=== PATIENT | male | born 1945 | race Caucasian/White ===

== ENCOUNTER 2023-04-09 10:14 | Outpatient (REF) | payer OTHER, SELFPAY | END 2023-04-09 10:15 | disposition home or self-care (01) | LOC: CF 10:14 | PROVIDERS: Visit Provider Psychiatry & Neurology Neurology | DX: Z13.89 Encounter for screening for other disorder (principal) ==

== ENCOUNTER 2023-05-06 11:01 | Outpatient (AMB) | payer OTHER, SELFPAY ==
[2023-05-06 11:04] VITALS: BP 112/58; PULSE 88; O2SAT 94
--- NOTE | 2023-05-06 11:04 | MHC.OFFVIS ---
Intake Vital Signs 05/06/23 11:04 Weight 264 lb BP 112/58 L Blood Pressure Location Lt brachial Position Sitting Pulse 88 Pulse Source Pulse Oximeter Pulse Oximetry (%) 94 Oxygen Delivery Method Room Air Intake Visit Reasons: Shortness of breath Allergies No Known Allergies Allergy (Verified 05/06/23 11:12) Medication List - Last Reconciled 05/06/23 by Antonella Grossman LPN acetaminophen 500 mg PO BID PRN albuterol sulfate 90 mcg/actuation 2 puffs inhalation Q4-6H PRN apixaban 5 mg PO BID cyanocobalamin (vitamin B-12) 1,000 mcg PO DAILY finasteride 5 mg PO DAILY fluticasone propionate 50 mcg/actuation 1 spray intranasal DAILY hydrochlorothiazide 25 mg PO DAILY lisinopril 10 mg PO DAILY loratadine 10 mg PO DAILY mirtazapine 15 mg PO BEDTIME mometasone (Asmanex Twisthaler) 1 inh inhalation DAILY olodaterol 2.5 mcg/actuation 2 inhalations inhalation DAILY omeprazole 20 mg PO DAILY oxybutynin chloride ER 10 mg PO DAILY pregabalin 300 mg PO BID ropinirole 2 mg PO BEDTIME sertraline 200 mg PO DAILY tamsulosin 0.4 mg PO DAILY HPI Shortness of breath HPI Details Gamal is pleasant 78, current 1/2 ppd smoker with approximately 60 pack year history, with underlying COPD, provoked DVT/PE (approx. 4-5 yrs ago) maintained on Eliquis, and SERA noncompliant with CPAP. He was referred for pulmonary evaluation for progressively worsening dyspnea. He reports dyspnea with moderate exertion, wheezing and intermittent cough with clear sputum. He reports suboptimal response to Olodoterol and albuterol MDI. He was prescribed Asmanex but unfortunately did not trial. He denies prior PFT. He reports recent chest CT performed at [facility], referral noted emphysema. Full report not available today, will obtain. He also reports BLE edema and orthopnea. He denies prior echo, has an upcoming consultation with cardiology. He reports possible occupational exposures to multiple chemicals while in the [employer]. He denies prior history of asthma. He denies any pertinent family history. [facility] Social History (Updated 05/06/23 @ 11:13 by Antonella Grossman LPN) Patient Tobacco Use Status: Current everyday Tobacco user Tobacco use type: Cigarette Cigarette Packs Per Day: 0.5 Cigarettes Per Day: 8 Review of Systems Const Denies chills, Denies excessive sweating, Denies fever(s), Denies headache(s) and Denies night sweats Eyes Denies dry eyes, Denies irritation and Denies itchy eyes ENT Reports Normal hearing present, Denies headache(s), Denies nasal congestion, Denies nasal discharge, Denies post nasal drip and Denies sore throat Card Denies chest pain, Denies chest pain at rest, Denies chest pain with activity, Denies claudication, Denies leg edema, Denies dyspnea, Reports dyspnea on exertion, Denies orthopnea and Denies paroxysmal nocturnal dyspnea Resp Denies change in phlegm color, Denies chest congestion, Reports cough, Denies hemoptysis, Denies excessive phlegm production, Denies pain on inspiration, Denies pain with cough, Denies dyspnea, Reports dyspnea on exertion, Denies stridor and Reports wheezing Musc Denies myalgias Neuro Reports Normal hearing present and Denies headache(s) Endo Denies excessive sweating Leonard/Lymph Denies lymphadenopathy Aller/Immun Denies itchy eyes, Denies seasonal rhinorrhea and Reports wheezing Physical Exam Vital Signs: Last Vital Signs Pulse 88 05/06/23 11:04 BP 112/58 L 05/06/23 11:04 Pulse Ox 94 05/06/23 11:04 Oxygen Delivery Method Room Air 05/06/23 11:04 Const General: cooperative, healthy appearing, comfortable, no acute distress, well developed and alert Nutritional Appearance: obese Orientation/consciousness: patient oriented x3 HEENT Head: Yes normal to inspection, Yes normocephalic and Yes atraumatic Ears: hearing grossly normal bilaterally and external ears normal Eyes General: appearance normal, both eyes and all related structures Eyelids: Yes eyelids normal Sclerae: sclerae normal EOM: EOMs intact bilaterally Neck Neck: Yes normal visual inspection and Yes no lymphadenopathy Lymphatic: no lymphadenopathy noted Chest Chest palpation & inspection: normal inspection of the chest Resp Other: diminished lung sounds throughout Effort & Inspection: normal respiratory effort, able to speak in complete sentences, no audible wheezes, no cough, no stridor, not tachypneic, no tripod positioning and no use of accessory muscles Cardio Jugular venous distension: no JVD Rate: regular rate Rhythm: regular rhythm Skin Other: warm, dry General skin exam: no rashes or lesions noted Neuro General: patient oriented x3 Cranial nerves: Yes Normal hearing present Cognition (Neuro): normal cognition Extrem Other: 2-3+ pitting edema of BLE General: Yes normal to inspection and Yes capillary refill normal Psych Appearance: grossly normal and well kempt Speech and movement: Normal speech and movement present and Clear speech present Affect: normal affect Attitude: cooperative Thought process: Normal thought process present Thought content: Normal thought content present Insight: Good insight present (Psych) Judgement: Good judgement present (Psych) Office Procedures 6 Minute Walk Time:: 11:40 SPO2 % at rest: 93 Pulse at rest: 82 SPO2 % during excercise: 87 Pulse during excercise: 96 SPO2 % after excercise: 95 Pulse after excercise: 88 Distance in yards walked: 50 Parmjit Score: 7 Performance Observations:: Patient walked slowly on level ground with the use of a cane and wearing an orthopedic boot on his left foot. After 25 yards O2 saturation decreased to 87% pulse of 96. Patient sat and rested and O2 applied at 1L via nasal cannula. O2 saturation recovered to 95% pulse of 93. Patient was able to continue the walk and maintain O2 saturation of 92% or greater. Patient reports significant dyspnea when walking a long distance or up stairs. Patient would benefit from the use of supplemental O2. 39903 - 6 Minute Walk Assessment & Plan Assessment & Plan (1) COPD (chronic obstructive pulmonary disease): Code(s): J44.9 - Chronic obstructive pulmonary disease, unspecified (2) Dyspnea on exertion: Code(s): R06.09 - Other forms of dyspnea (3) Nocturnal hypoxemia: Code(s): G47.34 - Idiopathic sleep related nonobstructive alveolar hypoventilation Plan Edward's symptoms are likely multifactorial with contribution from pulmonary, cardiac and deconditioning/obesity etiologies. Will send for PFT to assess severity of COPD. Patient reports recent chest CT, will obtain records. Patient has upcoming consultation with cardiology and will likely have an echocardiogram, patient with BLE edema and orthopnea. 6MWT performed today and patient's oxygen decreased to 87% recovering quickly on 1L of supplemental oxygen. At this time, patient declining supplemental oxygen. Discussed negative effects of hypoxia. Patient reports h/o SERA but noncompliant with CPAP therapy, will send for overnight oximetry to assess for nocturnal hypoxia. Will change LAMA to Trelegy and send refill of albuterol, as his is . Importance of oral hygiene reviewed. Patient aware if there are issues obtaining the prescription to call the office. All questions were answered and patient is in agreement of plan. Will follow up to review response to inhaler and results. Orders: Orders AMB 6 minute walk Today R06.09 - Other forms of dyspnea PFT pulmonary function test Today J44.9 - Chronic obstructive pulmonary disease, unspecified, R06.09 - Other forms of dyspnea Overnight Pulse Oximetry Today G47.34 - Idiopathic sleep related nonobstructive alveolar hypoventilation Medications: New vuaoglshfbk-sascbmvar-nlncdkua 200-62.5-25 mcg (Trelegy Ellipta) 1 inh inhalation DAILY 60 ea 3RF Coding Level of Care Code New Pt Level 4 (39075) Diagnoses COPD (chronic obstructive pulmonary disease) J44.9 Dyspnea on exertion R06.09 Nocturnal hypoxemia G47.34 CPT Codes Coding ([id number])
[2023-05-06 12:14] VITALS: PULSE 82; O2SAT 93
== END 2023-05-06 13:07 | disposition home or self-care (01) ==
PROVIDERS: PCP Nurse Practitioner Family; Referring Provider Hospitalist; Visit Provider Nurse Practitioner Family
DX: J44.9 Chronic obstructive pulmonary disease, unspecified (principal); R06.09 Other forms of dyspnea; G47.34 Idiopathic sleep related nonobstructive alveolar hypoventilation
CPT/HCPCS: 94618; 99204

== ENCOUNTER → 2023-05-06 11:01 | Outpatient (BNVA) | payer OTHER, SELFPAY | PROVIDERS: PCP Nurse Practitioner Family; Referring Provider Hospitalist; Visit Provider Nurse Practitioner Family | DX: J44.9 Chronic obstructive pulmonary disease, unspecified (principal); R06.09 Other forms of dyspnea; G47.34 Idiopathic sleep related nonobstructive alveolar hypoventilation | CPT/HCPCS: 94618; 99202 ==

== ENCOUNTER 2023-08-01 12:54 | Outpatient (REF) | payer OTHER, SELFPAY ==
[2023-08-01 08:56] VITALS: PULSE 66; RESP 16; O2SAT 96
--- NOTE | 2023-08-01 13:53 | PFT_ITS ---
Indication: COPD Spirometry [FEV1 to FVC 68% 0.27 L; FVC 3.34 L. There was a significant response to bronchodilators noted. Maximum voluntary ventilation 76% predicted] Lung Volumes [Total lung capacity 69% predicted; expiratory reserve volume 74% predicted] Diffusion Capacity [Diffusing capacity DLCO 56% predicted] Comparisons [None] Interpretation [There has an obstructive ventilatory defect consistent with moderate COPD. There has a significant response to bronchodilators noted. Mild decrease in the maximum voluntary ventilation secondary to likely deconditioning. Lung volumes also demonstrate a restrictive ventilatory defect consistent asoy-zs-pwxtfbnc restrictive lung disease. We did consider underlying parenchymal lung conditions. Patient does have a moderate diffusion impairment. Clinical correlation warranted.] MTDD
== END 2023-08-01 12:55 | disposition home or self-care (01) ==
LOC: HO.RESP 12:54
PROVIDERS: Visit Provider Nurse Practitioner Family
DX: J44.9 Chronic obstructive pulmonary disease, unspecified (principal); R06.09 Other forms of dyspnea
CPT/HCPCS: 94010; 94640; 94727; 94729

== ENCOUNTER → 2023-08-01 13:53 | Outpatient (BNV) | payer OTHER, SELFPAY | PROVIDERS: Visit Provider Hospitalist | DX: J44.9 Chronic obstructive pulmonary disease, unspecified (principal) | CPT/HCPCS: 94060; 94727; 94729 ==

== ENCOUNTER 2023-08-06 13:21 | Outpatient (AMB) | payer OTHER, SELFPAY ==
--- NOTE | 2023-08-06 13:25 | A.OFFVIS_ITS ---
Vital Signs 08/06/23 13:26 Height 5 ft 9 in Weight 251 lb 8 oz BMI 37.1 BP 140/78 H Blood Pressure Location Lt brachial Position Sitting Pulse 65 Pulse Source Pulse Oximeter Pulse Oximetry (%) 96 Oxygen Delivery Method Room Air Intake Visit Reasons: shortness of breath: 3 month f/u Allergies No Known Allergies Allergy (Verified 08/06/23 13:30) HPI HPI shortness of breath: 3 month f/u: Details: Gamal is pleasant 78, current 1/2 ppd smoker with approximately 60 pack year history, with underlying COPD, provoked DVT/PE (approx. 4-5 yrs ago) maintained on Eliquis, and SERA noncompliant with CPAP. At the last visit, he was staretd on Trelegy, however regimen was changed due to [facility]. He is not sure of medications, will call with information later today. He is unsure of effectiveness and continues to report dyspnea with moderate exertion, wheezing and intermittent cough with clear sputum. Today he presents to review overnight oximetry report and PFT. Of note, he reports using CPAP therapy more often and is willing to be compliant. He also reports starting Chantix prescribed by PCP. [facility] Social History Patient Tobacco Use Status: Current everyday Tobacco user Tobacco use type: Cigarette Cigarette Packs Per Day: 0.5 Cigarettes Per Day: 8 Review of Systems Const Denies chills, Denies excessive sweating, Denies fever(s), Denies headache(s) and Denies night sweats Eyes Denies dry eyes, Denies irritation and Denies itchy eyes ENT Reports Normal hearing present, Denies headache(s), Denies nasal congestion, Denies nasal discharge, Denies post nasal drip and Denies sore throat Card Denies chest pain, Denies chest pain at rest, Denies chest pain with activity, Denies claudication, Denies leg edema, Denies orthopnea and Denies paroxysmal nocturnal dyspnea Resp Denies chest congestion, Denies excessive phlegm production, Denies pain on inspiration, Denies pain with cough and Denies stridor Musc Denies myalgias Neuro Reports Normal hearing present and Denies headache(s) Endo Denies excessive sweating Leonard/Lymph Denies lymphadenopathy Aller/Immun Denies itchy eyes and Denies seasonal rhinorrhea Physical Exam Vital Signs: Last Vital Signs Pulse 65 08/06/23 13:26 BP 140/78 H 08/06/23 13:26 Pulse Ox 96 08/06/23 13:26 Oxygen Delivery Method Room Air 08/06/23 13:26 BMI result Body Mass Index 37.1 Const General: cooperative, healthy appearing, comfortable, no acute distress, well developed and alert Nutritional Appearance: obese Orientation/consciousness: patient oriented x3 HEENT Head: Yes normal to inspection, Yes normocephalic and Yes atraumatic Ears: hearing grossly normal bilaterally and external ears normal Eyes General: appearance normal, both eyes and all related structures Eyelids: Yes eyelids normal Sclerae: sclerae normal EOM: EOMs intact bilaterally Neck Neck: Yes normal visual inspection and Yes no lymphadenopathy Lymphatic: no lymphadenopathy noted Chest Chest palpation & inspection: normal inspection of the chest Resp Other: diminished lung sounds throughout Effort & Inspection: normal respiratory effort, able to speak in complete sentences, no audible wheezes, no cough, no stridor, not tachypneic, no tripod positioning and no use of accessory muscles Cardio Jugular venous distension: no JVD Rate: regular rate Rhythm: regular rhythm Skin Other: warm, dry General skin exam: no rashes or lesions noted Neuro General: patient oriented x3 Cranial nerves: Yes Normal hearing present Cognition (Neuro): normal cognition Extrem Other: 2-3+ pitting edema of BLE General: Yes normal to inspection and Yes capillary refill normal Psych Appearance: grossly normal and well kempt Speech and movement: Normal speech and movement present and Clear speech present Affect: normal affect Attitude: cooperative Thought process: Normal thought process present Thought content: Normal thought content present Insight: Good insight present (Psych) Judgement: Good judgement present (Psych) Assessment & Plan Assessment & Plan (1) COPD (chronic obstructive pulmonary disease): Code(s): J44.9 - Chronic obstructive pulmonary disease, unspecified Category: Medical (2) Dyspnea on exertion: Code(s): R06.09 - Other forms of dyspnea Category: Medical (3) Nocturnal hypoxemia: Code(s): G47.34 - Idiopathic sleep related nonobstructive alveolar hypoventilation Category: Medical (4) Obstructive sleep apnea: Code(s): G47.33 - Obstructive sleep apnea (adult) (pediatric) Category: Medical Plan Edward continues to report suboptimal effect with current medication regimen. Unfortunately, Yanci was switched to other medications due to insurance coverage and he can not recall what medications/dosages he is on. Advised patient to call when he gets home to let our office know what he is taking. Reviewed overnight oximetry and expressed need for nocturnal supplemental oxygen if he is not using his CPAP machine. He expressed willingness to be more compliant. Will send for overnight oximetry while using CPAP to see if his nocturnal hypoxemia is corrected. If hypoxia persists, discussed in lab titration study. Reviewed PFT which revealed an obstructive ventilatory defect consistent with moderate COPD. There has a significant response to bronchodilators noted. Mild decrease in the maximum voluntary ventilation secondary to likely deconditioning. Lung volumes also demonstrate a restrictive ventilatory defect consistent vcyd-rf-xbtbvbal restrictive lung disease, likely due to obesity. There is also moderate diffusion impairment likely secondary to emphysema. All questions were answered and patient is in agreement of plan. Will follow up to review results or sooner if needed. Orders: Orders Overnight Pulse Oximetry Today G47.34 - Idiopathic sleep related nonobstructive alveolar hypoventilation Coding Level of Care Code Est Pt Level 4 (58469) Diagnoses COPD (chronic obstructive pulmonary disease) J44.9 Dyspnea on exertion R06.09 Nocturnal hypoxemia G47.34 Obstructive sleep apnea G47.33
[2023-08-06 13:26] VITALS: BP 140/78; PULSE 65; O2SAT 96; BMI 37.1
== END 2023-08-06 14:24 | disposition home or self-care (01) ==
PROVIDERS: PCP Nurse Practitioner Family; Visit Provider Nurse Practitioner Family
DX: J44.9 Chronic obstructive pulmonary disease, unspecified (principal); R06.09 Other forms of dyspnea; G47.34 Idiopathic sleep related nonobstructive alveolar hypoventilation; G47.33 Obstructive sleep apnea (adult) (pediatric)
CPT/HCPCS: 99214

== ENCOUNTER → 2023-08-06 13:21 | Outpatient (BNVA) | payer OTHER, SELFPAY | PROVIDERS: PCP Nurse Practitioner Family; Visit Provider Nurse Practitioner Family | DX: J44.9 Chronic obstructive pulmonary disease, unspecified (principal); G47.33 Obstructive sleep apnea (adult) (pediatric); R06.09 Other forms of dyspnea; G47.34 Idiopathic sleep related nonobstructive alveolar hypoventilation; F17.210 Nicotine dependence, cigarettes, uncomplicated; Z91.199 Patient's noncompliance with other medical treatment and regimen due to unspecified reason; Z86.718 Personal history of other venous thrombosis and embolism; Z79.01 Long term (current) use of anticoagulants | CPT/HCPCS: 99212 ==

== ENCOUNTER 2024-01-09 11:29 | Outpatient (AMB) | payer OTHER, SELFPAY ==
[2024-01-09 11:31] VITALS: BP 118/72; PULSE 62; O2SAT 94; BMI 37.0
--- NOTE | 2024-01-09 11:31 | A.OFFVIS_ITS ---
Vital Signs 01/09/24 11:31 Height 5 ft 9 in Weight 250 lb 4 oz BMI 37.0 BP 118/72 Blood Pressure Location Rt brachial Position Sitting Pulse 62 Pulse Source Pulse Oximeter Pulse Oximetry (%) 94 Oxygen Delivery Method Room Air Intake Visit Reasons: Shortness of breath Allergies No Known Allergies Allergy (Verified 01/09/24 11:35) HPI HPI Shortness of breath: Details: Gamal is pleasant 78, current 1/2 ppd smoker with approximately 60 pack year history, with underlying COPD, provoked DVT/PE (approx. 4-5 yrs ago) maintained on Eliquis, and SERA noncompliant with CPAP. He has been suboptimally controlled on ICS/LABA. Previously attempted to send in Trelegy however was not covered through the [facility]. He continues to report dyspnea with moderate exertion, wheezing and intermittent cough with clear sputum. He reports issues of compliance with CPAP therapy however has been more compliant recently. Prior overnight oximetry revealed nocturnal hypoxemia and was sent for an overnight oximetry with CPAP, however this was not performed due to lack of compliance. Previously discussed supplemental oxygen for night however he refused and continues to. He has an upcoming LDCT through the [facility] scheduled in February. [facility] Social History Patient Tobacco Use Status: Current everyday Tobacco user Tobacco use type: Cigarette Cigarette Packs Per Day: 0.5 Cigarettes Per Day: 8 Review of Systems Const Denies chills, Denies excessive sweating, Denies fever(s), Denies headache(s) and Denies night sweats Eyes Denies dry eyes, Denies irritation and Denies itchy eyes ENT Reports Normal hearing present, Denies headache(s), Denies nasal congestion, Denies nasal discharge, Denies post nasal drip and Denies sore throat Card Denies chest pain, Denies chest pain at rest, Denies chest pain with activity, Denies claudication, Denies leg edema, Reports dyspnea on exertion, Denies orthopnea and Denies paroxysmal nocturnal dyspnea Resp Denies chest congestion, Reports cough, Denies excessive phlegm production, Denies pain on inspiration, Denies pain with cough, Reports dyspnea on exertion, Denies stridor and Reports wheezing Musc Denies myalgias Neuro Reports Normal hearing present and Denies headache(s) Endo Denies excessive sweating Leonard/Lymph Denies lymphadenopathy Aller/Immun Denies itchy eyes, Denies seasonal rhinorrhea and Reports wheezing Physical Exam Vital Signs: Last Vital Signs Pulse 62 01/09/24 11:31 BP 118/72 01/09/24 11:31 Pulse Ox 94 01/09/24 11:31 Oxygen Delivery Method Room Air 01/09/24 11:31 BMI result Body Mass Index 37.0 Const General: cooperative, healthy appearing, comfortable, no acute distress, well developed and alert Nutritional Appearance: obese Orientation/consciousness: patient oriented x3 Limitations: no limitations HEENT Head: Yes normal to inspection, Yes normocephalic and Yes atraumatic Ears: hearing grossly normal bilaterally and external ears normal Eyes General: appearance normal, both eyes and all related structures Eyelids: Yes eyelids normal Sclerae: sclerae normal EOM: EOMs intact bilaterally Neck Neck: Yes normal visual inspection and Yes no lymphadenopathy Lymphatic: no lymphadenopathy noted Chest Chest palpation & inspection: normal inspection of the chest Resp Other: diminished lung sounds throughout with audible wheezes, improved with DuoNeb Effort & Inspection: normal respiratory effort, able to speak in complete sent ences, audible wheezes, no cough, no stridor, not tachypneic, no tripod positioning and no use of accessory muscles Auscultation: wheezes and diminished lung sounds Cardio Jugular venous distension: no JVD Rate: regular rate Rhythm: regular rhythm Skin Other: warm, dry General skin exam: no rashes or lesions noted Neuro General: patient oriented x3 Cranial nerves: Yes Normal hearing present Cognition (Neuro): normal cognition Gait exam (Neuro): Normal gait present Extrem Other: 2-3+ pitting edema of BLE General: Yes normal to inspection, Yes capillary refill normal, Yes no clubbing, cyanosis or edema and Yes no pedal edema Psych Appearance: grossly normal and well kempt Speech and movement: Normal speech and movement present and Clear speech present Affect: normal affect Attitude: cooperative Thought process: Normal thought process present Thought content: Normal thought content present Insight: Good insight present (Psych) Judgement: Good judgement present (Psych) Office Procedures Nebulizer Treatment Nebulizer Treatment [id number]/MDI RX initial, or Nebulizer Subsequent Treatment Office Meds ipratropium 0.5 mg-albuterol 3 mg (2.5 mg base)/3 mL nebulization soln Performing Provider: Sade Brooke NP Performing Location: [facility] Administered by: Shanice Hayes LPN on 01/09/24 12:03 Dose Route Admin Location Dispensed Lot Number Expiration Date [employer] Professor 3 mL inhalation 3 mL [id number] 07/05/25 74433-447-48 [employer] Assessment & Plan Assessment & Plan (1) COPD (chronic obstructive pulmonary disease): Code(s): J44.9 - Chronic obstructive pulmonary disease, unspecified Category: Medical (2) Dyspnea on exertion: Code(s): R06.09 - Other forms of dyspnea Category: Medical (3) Nocturnal hypoxemia: Code(s): G47.34 - Idiopathic sleep related nonobstructive alveolar hypoventilation Category: Medical (4) Obstructive sleep apnea: Code(s): G47.33 - Obstructive sleep apnea (adult) (pediatric) Category: Medical Plan Edward continues to report suboptimal effect with current medication regimen, will send Trelegy to [facility] per request. Will also send DuoNeb and nebulizer for home use. Again reviewed prior overnight oximetry and expressed need for nocturnal supplemental oxygen if he is not using his CPAP machine. He again expressed willingness to be more compliant. Will send for overnight oximetry while using CPAP once more complianct, to see if his nocturnal hypoxemia is corrected. If hypoxia persists, discussed in lab titration study. Once chest CT performed in February will request results. All questions were answered and patient is in agreement of plan. Will follow up in 4-6 weeks or sooner if needed. Orders: Orders AMB Nebulizer Treatment Today J44.9 - Chronic obstructive pulmonary disease, unspecified, R06.09 - Other forms of dyspnea Medications: New ipratropium-albuterol 0.5 mg-3 mg(2.5 mg base)/3 mL 3 mL inhalation Q6H PRN 180 mL 3RF wheezing ipratropium-albuterol 0.5 mg-3 mg(2.5 mg base)/3 mL 3 mL inhalation Q6H PRN 180 mL 3RF wheezing Refilled mspkhbiumgl-mqounhgfo-mguvbimd 200-62.5-25 mcg (Trelegy Ellipta) 1 inh inhalation DAILY 60 ea 3RF Coding Level of Care Code Est Pt Level 4 (81330) Diagnoses COPD (chronic obstructive pulmonary disease) J44.9 Dyspnea on exertion R06.09 Nocturnal hypoxemia G47.34 Obstructive sleep apnea G47.33 CPT Codes Nebulizer Treatment - Nebulizer Treatment, initial or subsequent: 25428- Nebulizer/MDI RX initial, or Nebulizer Subsequent Treatment ([id number])
== END 2024-01-09 12:19 | disposition home or self-care (01) ==
PROVIDERS: PCP Nurse Practitioner Family; Referring Provider Nurse Practitioner Family; Visit Provider Nurse Practitioner Family
DX: J44.9 Chronic obstructive pulmonary disease, unspecified (principal); R06.09 Other forms of dyspnea; G47.34 Idiopathic sleep related nonobstructive alveolar hypoventilation; G47.33 Obstructive sleep apnea (adult) (pediatric)
CPT/HCPCS: 99214

== ENCOUNTER → 2024-01-09 11:29 | Outpatient (BNVA) | payer OTHER, SELFPAY | PROVIDERS: PCP Nurse Practitioner Family; Visit Provider Nurse Practitioner Family | DX: J44.9 Chronic obstructive pulmonary disease, unspecified (principal); G47.33 Obstructive sleep apnea (adult) (pediatric); R06.09 Other forms of dyspnea; G47.34 Idiopathic sleep related nonobstructive alveolar hypoventilation; F17.210 Nicotine dependence, cigarettes, uncomplicated; Z86.718 Personal history of other venous thrombosis and embolism; Z79.01 Long term (current) use of anticoagulants; Z99.89 Dependence on other enabling machines and devices; Z91.199 Patient's noncompliance with other medical treatment and regimen due to unspecified reason | CPT/HCPCS: 94640; 99212 ==

== ENCOUNTER 2024-06-18 13:54 | Outpatient (REF) | payer OTHER, SELFPAY | END 2024-06-18 13:55 | disposition home or self-care (01) | LOC: CF 13:54 | DX: Z13.89 Encounter for screening for other disorder (principal) ==

== ENCOUNTER 2024-07-16 11:09 | Outpatient (AMB) | payer OTHER, SELFPAY ==
[2024-07-16 11:12] VITALS: BP 114/68; PULSE 65; O2SAT 93; BMI 37.5
--- NOTE | 2024-07-16 11:12 | A.OFFVIS_ITS ---
Vital Signs 07/16/24 11:12 Height 5 ft 9 in Weight 254 lb BMI 37.5 BP 114/68 Blood Pressure Location Rt brachial Position Sitting Pulse 65 Pulse Source Pulse Oximeter Pulse Oximetry (%) 93 Oxygen Delivery Method Room Air Intake Visit Reasons: Shortness of breath Organic Preparation Analyst Required: No Patent Litigation Associate: Patent Litigation Associate offered & declined Accompanied by: Spouse Allergies No Known Allergies Allergy (Verified 07/16/24 11:16) Medication List - Last Reconciled 07/16/24 by Shanice Hayes LPN acetaminophen 500 mg PO BID PRN albuterol sulfate 90 mcg/actuation 2 puffs inhalation Q4-6H PRN albuterol sulfate 90 mcg/actuation 2 puffs inhalation Q4-6H PRN apixaban 5 mg PO BID cyanocobalamin (vitamin B-12) 1,000 mcg PO DAILY finasteride 5 mg PO DAILY fluticasone propionate 50 mcg/actuation 1 spray intranasal DAILY niseoouyyhm-ppyvwajlx-uzkcoxmt 200-62.5-25 mcg (Trelegy Ellipta) 1 inh inhalation DAILY gabapentin enacarbil ER (Horizant ER) 600 mg PO QPM hydrochlorothiazide 25 mg PO DAILY ipratropium-albuterol 0.5 mg-3 mg(2.5 mg base)/3 mL 3 mL inhalation Q6H PRN lisinopril 10 mg PO DAILY loratadine 10 mg PO DAILY mirtazapine 15 mg PO BEDTIME omeprazole 20 mg PO DAILY oxybutynin chloride ER 10 mg PO DAILY pregabalin 300 mg PO BID ropinirole 2 mg PO BEDTIME sertraline 200 mg PO DAILY tamsulosin 0.4 mg PO DAILY zolpidem (Ambien) 5 mg PO BEDTIME HPI HPI Shortness of breath: Details: Gamal is pleasant 79, current 1/2 ppd smoker with approximately 60 pack year h istory, with underlying COPD, provoked DVT/PE (approx. 4-5 yrs ago) maintained on Eliquis, and SERA noncompliant with CPAP. He has been moderately controlled on Trelegy. He continues to report dyspnea with moderate exertion, wheezing and intermittent cough with clear sputum. He also notes increased orthopnea and bilateral lower extremity edema. He is under the care of [facility] and has an upcoming appointment scheduled in August. He reportedly had an echo performed recently however report not available today, will attempt to obtain. He continues to report noncompliance with CPAP therapy and is not interested in overnight supplemental oxygen as prior overnight oximetry revealed nocturnal hypoxemia. He denies any visits to urgent care or hospitalizations related to respiratory distress since last visit. Of note patient enrolled in lung screening program and reviewed CT from 02/25/2024 which reveals stable 4.7 mm right middle lobe nodule. He has upcoming low-dose CT scheduled for February 2025. [facility] Social History (Updated 07/16/24 @ 11:21 by Shanice Hayes LPN) Patient Tobacco Use Status: Current everyday Tobacco user Tobacco use type: Cigarette Cigarette Packs Per Day: 0.5 Cigarettes Per Day: 10 Review of Systems Const Denies chills, Denies excessive sweating, Denies fever(s), Denies headache(s) and Denies night sweats Eyes Denies dry eyes, Denies irritation and Denies itchy eyes ENT Reports Normal hearing present, Denies headache(s), Denies nasal congestion, Denies nasal discharge, Denies post nasal drip and Denies sore throat Card Denies chest pain, Denies chest pain at rest, Denies chest pain with activity, Denies claudication, Reports leg edema, Reports dyspnea on exertion, Reports orthopnea and Denies paroxysmal nocturnal dyspnea Resp Denies chest congestion, Reports cough, Denies excessive phlegm production, Denies pain on inspiration, Denies pain with cough, Reports dyspnea on exertion, Denies stridor and Reports wheezing Musc Denies myalgias Neuro Reports Normal hearing present and Denies headache(s) Endo Denies excessive sweating Leonard/Lymph Denies lymphadenopathy Aller/Immun Denies itchy eyes, Denies seasonal rhinorrhea and Reports wheezing Physical Exam Vital Signs: Last Vital Signs Pulse 65 07/16/24 11:12 BP 114/68 07/16/24 11:12 Pulse Ox 93 07/16/24 11:12 Oxygen Delivery Method Room Air 07/16/24 11:12 BMI result Body Mass Index 37.5 Const General: cooperative, healthy appearing, comfortable, no acute distress, well developed and alert Nutritional Appearance: obese Orientation/consciousness: patient oriented x3 Limitations: no limitations HEENT Head: Yes normal to inspection, Yes normocephalic and Yes atraumatic Ears: hearing grossly normal bilaterally and external ears normal Eyes General: appearance normal, both eyes and all related structures Eyelids: Yes eyelids normal Sclerae: sclerae normal EOM: EOMs intact bilaterally Neck Neck: Yes normal visual inspection and Yes no lymphadenopathy Lymphatic: no lymphadenopathy noted Chest Chest palpation & inspection: normal inspection of the chest Resp Effort & Inspection: normal respiratory effort, able to speak in complete sentences, no cough, no stridor, not tachypneic, no tripod positioning and no use of accessory muscles Auscultation: no crackles, no rhonchi, no wheezes and diminished lung sounds Cardio Jugular venous distension: no JVD Rate: regular rate Rhythm: regular rhythm Skin Other: warm, dry General skin exam: no rashes or lesions noted Neuro General: patient oriented x3 Cranial nerves: Yes Normal hearing present Cognition (Neuro): normal cognition Gait exam (Neuro): Normal gait present Extrem Other: 2-3+ pitting edema of BLE General: Yes normal to inspection, Yes capillary refill normal, Yes no clubbing, cyanosis or edema and Yes no pedal edema Psych Appearance: grossly normal and well kempt Speech and movement: Normal speech and movement present and Clear speech present Affect: normal affect Attitude: cooperative Thought process: Normal thought process present Thought content: Normal thought content present Insight: Good insight present (Psych) Judgement: Good judgement present (Psych) Assessment & Plan Assessment & Plan (1) COPD (chronic obstructive pulmonary disease): Code(s): J44.9 - Chronic obstructive pulmonary disease, unspecified Category: Medical (2) Dyspnea on exertion: Code(s): R06.09 - Other forms of dyspnea Category: Medical (3) Nocturnal hypoxemia: Code(s): G47.34 - Idiopathic sleep related nonobstructive alveolar hypoventilation Category: Medical (4) Obstructive sleep apnea: Code(s): G47.33 - Obstructive sleep apnea (adult) (pediatric) Category: Medical Plan Edward continues to report suboptimal effect with current medication regimen, encouraged patient to continue Trelegy in addition to DuoNeb b.i.d.. Will also send flutter valve to improve mucus clearance. We discussed nocturnal supplemental oxygen however patient continues to defer. Discussed adverse effects of hypoxia. Will attempt to obtain prior echo and encouraged patient to weigh himself daily, reporting any increase of 2-3lbs in one day or 5 lbs in one week to cardiology. Reviewed chest CT which revealed stable RML nodule, [facility] All questions were answered and patient is in agreement of plan. Will follow up in 3 months or sooner if needed. Coding Level of Care Code Est Pt Level 4 (88581) Diagnoses COPD (chronic obstructive pulmonary disease) J44.9 Dyspnea on exertion R06.09 Nocturnal hypoxemia G47.34 Obstructive sleep apnea G47.33
== END 2024-07-16 11:53 | disposition home or self-care (01) ==
LOC: HO.HPSW 11:10
PROVIDERS: PCP Nurse Practitioner Family; Referring Provider Nurse Practitioner Family; Visit Provider Nurse Practitioner Family
DX: J44.9 Chronic obstructive pulmonary disease, unspecified (principal); R06.09 Other forms of dyspnea; G47.34 Idiopathic sleep related nonobstructive alveolar hypoventilation; G47.33 Obstructive sleep apnea (adult) (pediatric)
CPT/HCPCS: 99214

== ENCOUNTER → 2024-07-16 11:09 | Outpatient (BNVA) | payer OTHER, SELFPAY | PROVIDERS: PCP Nurse Practitioner Family; Visit Provider Nurse Practitioner Family | DX: J44.9 Chronic obstructive pulmonary disease, unspecified (principal); R06.09 Other forms of dyspnea; G47.34 Idiopathic sleep related nonobstructive alveolar hypoventilation; G47.33 Obstructive sleep apnea (adult) (pediatric) | CPT/HCPCS: 99212 ==

== ENCOUNTER 2024-10-22 10:59 | Outpatient (AMB) | payer OTHER, SELFPAY ==
[2024-10-22 11:03] VITALS: BP 120/64; PULSE 61; O2SAT 94; BMI 34.6
--- NOTE | 2024-10-22 11:03 | MHC.OFFVIS ---
Vital Signs 10/22/24 11:03 Height 5 ft 9 in Weight 234 lb BMI 34.6 BP 120/64 Blood Pressure Location Rt brachial Position Sitting Pulse 61 Pulse Source Pulse Oximeter Pulse Oximetry (%) 94 Oxygen Delivery Method Room Air Intake Visit Reasons: Shortness of breath Blood Tester Required: No Straw Hat Brim Cutter Operator: Straw Hat Brim Cutter Operator offered & declined Accompanied by: Spouse Allergies No Known Allergies Allergy (Verified 10/22/24 11:07) Medication List - Last Reconciled 10/22/24 by Shanice Hayes LPN acetaminophen 500 mg PO BID PRN albuterol sulfate 90 mcg/actuation 2 puffs inhalation Q4-6H PRN albuterol sulfate 90 mcg/actuation 2 puffs inhalation Q4-6H PRN apixaban 5 mg PO BID cyanocobalamin (vitamin B-12) 1,000 mcg PO DAILY finasteride 5 mg PO DAILY fluticasone propionate 50 mcg/actuation 1 spray intranasal DAILY hhjauhbzhar-qqjxfdpsc-odaolnqo 200-62.5-25 mcg (Trelegy Ellipta) 1 inh inhalation DAILY gabapentin enacarbil ER (Horizant ER) 600 mg PO QPM ipratropium-albuterol 0.5 mg-3 mg(2.5 mg base)/3 mL 3 mL inhalation Q6H PRN lisinopril 10 mg PO DAILY loratadine 10 mg PO DAILY oxybutynin chloride ER 10 mg PO DAILY pregabalin 300 mg PO BID ropinirole 2 mg PO BEDTIME sertraline 200 mg PO DAILY tamsulosin 0.4 mg PO DAILY HPI HPI Shortness of breath: Details: Gamal is pleasant 79, current 1/2 ppd smoker with approximately 60 pack year history, with underlying COPD, provoked DVT/PE (approx. 4-5 yrs ago) maintained on Eliquis, and SERA noncompliant with CPAP. He has been moderately controlled on Trelegy, using albuterol MDI frequently. He does have DuoNeb and flutter valve however uses infrequently. He continues to report dyspnea with moderate exertion, wheezing and intermittent cough with clear sputum. He is under the care of [place], last seen in August with no further workup scheduled. His last echo was from 2021 which revealed mild LVH otherwise unremarkable. Patient enrolled in lung screening program and reviewed CT from 02/25/2024 which reveals stable 4.7 mm right middle lobe nodule and has repeat CT scheduled at the [facility] February 2025. Prior CT revealed enlarged pulmonary arteries suggestive of pulmonary hypertension. He continues to report noncompliance with CPAP therapy and is not interested in overnight supplemental oxygen as prior overnight oximetry revealed nocturnal hypoxemia. He denies any visits to urgent care or hospitalizations related to respiratory distress since last visit. [facility] Social History (Updated 07/16/24 @ 11:21 by Shanice Hayes LPN) Patient Tobacco Use Status: Current everyday Tobacco user Tobacco use type: Cigarette Cigarette Packs Per Day: 0.5 Cigarettes Per Day: 10 Review of Systems Const Denies chills, Denies excessive sweating, Denies fever(s), Denies headache(s) and Denies night sweats Eyes Denies dry eyes, Denies irritation and Denies itchy eyes ENT Reports Normal hearing present, Denies headache(s), Denies nasal congestion, Denies nasal discharge, Denies post nasal drip and Denies sore throat Card Denies chest pain, Denies chest pain at rest, Denies chest pain with activity, Denies claudication, Reports leg edema, Reports dyspnea on exertion, Reports orthopnea and Denies paroxysmal nocturnal dyspnea Resp Denies chest congestion, Reports cough, Denies excessive phlegm production, Denies pain on inspiration, Denies pain with cough, Reports dyspnea on exertion, Denies stridor and Reports wheezing Musc Denies myalgias Neuro Reports Normal hearing present and Denies headache(s) Endo Denies excessive sweating Leonard/Lymph Denies lymphadenopathy Aller/Immun Denies itchy eyes, Denies seasonal rhinorrhea and Reports wheezing Physical Exam Vital Signs: Last Vital Signs Pulse 61 10/22/24 11:03 BP 120/64 10/22/24 11:03 Pulse Ox 94 10/22/24 11:03 Oxygen Delivery Method Room Air 10/22/24 11:03 BMI result Body Mass Index 34.6 Const General: cooperative, healthy appearing, comfortable, no acute distress, well developed and alert Nutritional Appearance: obese Orientation/consciousness: patient oriented x3 Limitations: no limitations HEENT Head: Yes normal to inspection, Yes normocephalic and Yes atraumatic Ears: hearing grossly normal bilaterally and external ears normal Eyes General: appearance normal, both eyes and all related structures Eyelids: Yes eyelids normal Sclerae: sclerae normal EOM: EOMs intact bilaterally Neck Neck: Yes normal visual inspection and Yes no lymphadenopathy Lymphatic: no lymphadenopathy noted Chest Chest palpation & inspection: normal inspection of the chest Resp Effort & Inspection: normal respiratory effort, able to speak in complete sentences, no cough, no stridor, not tachypneic, no tripod positioning and no use of accessory muscles Auscultation: no crackles, no rhonchi, no wheezes and diminished lung sounds Cardio Jugular venous distension: no JVD Rate: regular rate Rhythm: regular rhythm Skin Other: warm, dry General skin exam: no rashes or lesions noted Neuro General: patient oriented x3 Cranial nerves: Yes Normal hearing present Cognition (Neuro): normal cognition Gait exam (Neuro): Normal gait present Extrem Other: 2-3+ pitting edema of BLE General: Yes normal to inspection, Yes capillary refill normal, Yes no clubbing, cyanosis or edema and Yes no pedal edema Psych Appearance: grossly normal and well kempt Speech and movement: Normal speech and movement present and Clear speech present Affect: normal affect Attitude: cooperative Thought process: Normal thought process present Thought content: Normal thought content present Insight: Good insight present (Psych) Judgement: Good judgement present (Psych) Assessment & Plan Assessment & Plan (1) COPD (chronic obstructive pulmonary disease): Code(s): J44.9 - Chronic obstructive pulmonary disease, unspecified Category: Medical (2) Dyspnea on exertion: Code(s): R06.09 - Other forms of dyspnea Category: Medical (3) Nocturnal hypoxemia: Code(s): G47.34 - Idiopathic sleep related nonobstructive alveolar hypoventilation Category: Medical (4) Obstructive sleep apnea: Code(s): G47.33 - Obstructive sleep apnea (adult) (pediatric) Category: Medical Plan Edward continues to report suboptimal effect with current medication regimen, encouraged patient to continue Trelegy in addition to DuoNeb b.i.d. as well as flutter valve to improve mucus clearance. We discussed nocturnal supplemental oxygen however patient continues to defer. Discussed adverse effects of hypoxia. February [address] revealed stable RML nodule, will have repeat LDCT scheduled through the [facility] 02/2025. Smoking cessation is strongly encouraged, with a gradual reduction in cigarette consumption as a potential strategy. An echocardiogram is recommended to assess pulmonary pressures and evaluate for pulmonary hypertension, especially given the history of untreated sleep apnea. Coordination with cardiology is necessary to ensure timely scheduling of this test. Printed order for patient and [facility]. All questions were answered and patient is in agreement of plan. Will follow up in 3 months or sooner if needed. Orders: Orders CA echo transthoracic complete Today R06.09 - Other forms of dyspnea Coding Level of Care Code Est Pt Level 4 (93725) Complex EM visit Add On G2211 Diagnoses COPD (chronic obstructive pulmonary disease) J44.9 Dyspnea on exertion R06.09 Nocturnal hypoxemia G47.34 Obstructive sleep apnea G47.33
--- OUTSIDE RECORDS SUMMARY | 2024-10-22 11:35 | XMS_ITS | Clinical Summary ---
Author Organization [facility] Address [address] [place] [address] [address] [place] [phone] Phone Care Team Providers Care Training Program Developer Name Role Phone Ozzy Johnston MD Primary Care Provider Allergies Active Allergy Reactions Criticality Noted Date Comments Pollen Extracts 08/02/2024 Medications No known medications Encounters Date Type Department Care Team Description 08/02/2024 1:40 PM EDT Office Visit [facility] [address] [place] [id number] Michelle Rader PA-C Traumatic closed nondisplaced fracture of styloid process of radius, right, with routine healing, subsequent encounter (Primary Dx); Occult closed fracture of scaphoid of right wrist, initial encounter 08/02/2024 1:23 PM EDT - 08/02/2024 11:59 PM EDT Hospital Encounter [address] [id number] Michelle Rader PA-C Discharge Disposition: Home or Self Care from Last 3 Months Social History Tobacco Use Types Packs/Day Years Used Date Smoking Tobacco: Never Assessed Education Answer Date Recorded Are you interested in more education? Not on michael e 10/25/2022 Are you concerned about learning? Not on file 10/25/2022 No 10/25/2022 No 10/25/2022 Digital Access Answer Date Recorded No 10/25/2022 No 10/25/2022 Reliable internet access at home? Not on file 10/25/2022 Device with a working camera? Not on file Sex and Gender Information Value Date Recorded Sex Assigned at Not on file Legal Sex Male 12:25 PM EDT Gender Identity Not on file Sexual Orientation Not on file Plan of Treatment Health Maintenance Due Date Last Done Comments LIPID PANEL 1947 DEPRESSION SCREENING 1959 SMOKING Hx and SMOKELESS TOBACCO SCREENING 1960 HEPATITIS C SCREENING 1965 COVID-19 VACCINE ( season) 2024 12/31/2023, 01/23/2022, 09/19/2021, Additional history exists Adult Td,Tdap Booster 10/20/2033 10/21/2023 , 01/17/2017, 02/10/2009, Additional history exists PNEUMOCOCCAL VACCINES (50+ years) Completed 03/27/2017, 08/05/2014 ZOSTER VACCINES Completed 12/05/2017, 07/08, 04/26/2010, Additional history exists RSV VACCINE Completed 02/17/2023 HEPATITIS A VACCINES Aged Out 03/24/2023, 07/31/19 23 No longer eligible based on patient's age to complete this topic HIB VACCINES Aged Out No longer eligi ble based on patient's age to complete this topic MENINGOCOCCAL VACCINES (ACWY) Aged Out No longer eligible based on patient's age to complete this topic MENINGOCOCCAL VACCINES (B) Aged Out N o longer eligible based on patient's age to complete this topic Medical Devices Not on file Procedures Procedure Name Priority Date/Time Associated Diagnosis Comments XR WRIST 3 OR MORE VIEWS (RIGHT) Routine 08/02/2024 1:30 PM EDT Occult closed fracture of scaphoid of right wrist, initial encounter from Last 3 Months Results * XR WRIST 3 OR MORE VIEWS (RIGHT) (08/02/2024 1:30 PM EDT) Narrative SYSTEMGENERATED, DOCUMENTATION - 08/02/2024 1:30 PM EDT This image report has been auto-finalized and has not been read by a Radiologist. Interpretation has been included in the provider encounter note for this date of service. Michelle Rader PA-C IMG XR UPPER EXTREMI TY Final Result from Last 3 Months Insurance [facility] Address: [facility] [id number] [place] [address] MEDICARE PART A & B Member Subscriber Plan / Payer (Ef fective 2007-Present) Name:Ryan Schneider Member ID:[id number] Relation to Subscriber:Self Name:Ryan Schneider Subscriber ID:[id number] Payer ID:[id number] Group ID:Not on file Type:Medicare Address: [facility] [employer] [facility] [address] [facility] [place] [phone] [facility] MEDICARE SUPPLEMENT [facility] MEDICARE PART A & B [facility] MEDICARE SUPPLEMENT [facility] MEDICARE PART A & B FOR LIFE MEDICARE SUPPLEMENT [facility] MEDICARE PART A & B FOR LIFE MEDICARE SUPPLEMENT [facility] MEDICARE PART A & B [facility] MEDICARE SUPPLEMENT [facility] MEDICARE PART A & B [facility] MEDICARE SUPPLEMENT Care Teams Training Program Developer Relationship Specialty Start Date End Date Ozzy Johnston MD [address] [place] [phone] PCP - General Family Medicine 07/05/24 Additional Source Comments The information contained in this document represents components of the legal health record. It is not the complete legal health record.[facility]
== END 2024-10-22 11:51 | disposition home or self-care (01) ==
LOC: HO.HPSW 11:00
PROVIDERS: PCP Nurse Practitioner Family; Referring Provider Nurse Practitioner Family; Visit Provider Nurse Practitioner Family
DX: J44.9 Chronic obstructive pulmonary disease, unspecified (principal); R06.09 Other forms of dyspnea; G47.34 Idiopathic sleep related nonobstructive alveolar hypoventilation; G47.33 Obstructive sleep apnea (adult) (pediatric)
CPT/HCPCS: 99214; G2211

== ENCOUNTER → 2024-10-22 10:59 | Outpatient (BNVA) | payer OTHER, SELFPAY | PROVIDERS: PCP Nurse Practitioner Family; Visit Provider Nurse Practitioner Family | DX: R06.09 Other forms of dyspnea (principal); G47.32 High altitude periodic breathing; G47.33 Obstructive sleep apnea (adult) (pediatric); J44.9 Chronic obstructive pulmonary disease, unspecified | CPT/HCPCS: 99212 ==